=== PATIENT | female | born 1960 | race Caucasian/White ===

== ENCOUNTER → 2018-05-05 12:24 | Outpatient (CLI) | payer OTHER, SELFPAY ==
--- NOTE | 2018-05-05 | DI.MRI.S_ITS ---
PROCEDURE: MR LUMBAR SPINE WO CON INDICATIONS: LUMBAR SPINE PAIN TECHNIQUE: Noncontrast sagittal T1 spin echo and T2 fast echo, sagittal STIR, axial T1 and T2 fast spin echo through the lumbar spine. In cases with scoliosis, additional coronal T2 fast spin echo may be performed. COMPARISON: None. FINDINGS: Image quality: Excellent. Alignment and Curvature: Straightening of the normal lumbar lordosis Bone Marrow: Marrow is of normal overall signal. No acute vertebral body compression fractures. Spinal Cord: Conus medullaris terminates at the L1 level. Visualized cord demonstrates normal signal and size. Paraspinous Soft Tissues: No paravertebral masses. L1-L2: Posterior annular fissure and broad-based posterior disc bulge. Bilateral facet arthropathy and mild central canal narrowing. No foraminal stenosis. L2-L3: Bilateral facet arthropathy. No central canal narrowing. Mild partial effacement of the left and right lateral recess. No foraminal stenosis. L3-L4: Minimal broad-based posterior disc bulge and bilateral facet disease. No high-grade canal stenosis. Mild bilateral subarticular stenosis. No definite foraminal narrowing L4-L5: Broad-based posterior disc bulge with posterior annular fissure and left paracentral disc protrusion. Associated mild left-sided central canal narrowing. Partial effacement of the left lateral recess. The left L5 nerve root is not well seen in this location. Also, there is slightly posterior displaced appearance of the left S1 nerve root. Mild bilateral foraminal narrowing L5-S1: Normal appearance. IMPRESSION: Left paracentral L4-L5 disc protrusion, with possible impingement of the left L5 and S1 nerve roots. Please correlate with clinical exam findings. Elsewhere, no high-grade canal or foraminal stenosis. Dictated by: Kam Padilla M.D. on 05/05/2018 at 13:37 Approved by: Kam Padilla M.D. on 05/05/2018 at 14:02
== END ==
PROVIDERS: PCP Internal Medicine; Visit Provider Physical Medicine & Rehabilitation Pain Medicine
DX: M51.26 Other intervertebral disc displacement, lumbar region (principal)
CPT/HCPCS: 72148

== ENCOUNTER 2019-02-24 10:45 | Emergency (ER) | payer OTHER, SELFPAY ==
[2019-02-24 11:08] VITALS: BP 128/54; PULSE 65; RESP 20; TEMP 36.7; O2SAT 98
--- NOTE | 2019-02-24 12:06 | ED.BACK ---
HPI - Back Pain/Injury <Hue OrantesPRETTY - Last Filed: 02/24/19 21:37> General Chief Complaint: Back Pain/Injury Stated Complaint: lower back pain Time Seen by Provider: 02/24/19 11:22 Source: patient and family Mode of arrival: ambulatory Limitations: no limitations History of Present Illness HPI Narrative: 58-year-old female has a history of a lower herniated disc, and is currently taking Lamictal, presents emergency department today complaining of lower right back pain after bending over while taking care of the dog yesterday. She states her pain is spasm like and reports a 10/10 severity that is worse with standing up and standing for long periods of time. She states her pain is better while she is sitting or lying time. She denies any trauma, numbness, tingling, saddle paresthesias, loss of bowel or bladder control, dysuria, fevers, abdominal pain, nausea, vomiting, diarrhea, chest pain, shortness of breath, or headaches. She also denies limb weakness, but states it is harder to move around due to the pain. She states she has tried muscle relaxers in the past as well as various other pain medication and she says hydromorphone is the only 1 that works for her pain. She states that she usually has pain that radiates down her legs, however this muscle spasm pain is different and does not radiate down her legs. Patient stated she was doing physical therapy for her back pain however she decided to quit she no longer want to pay 30 dollars for her co-pay, she wanted to go back to see the spine surgeon and is planned getting a referral from her primary care provider, she has an appointment scheduled within the next few weeks. Complaint: back pain Onset (ago): minute(s) Duration: constant Similar Symptoms Previously: Yes Location: lumbar spine and right lower back Quality: spasming Radiation: none Severity scale (1-10): 10 Relieving factors: supine Exacerbating factors: sitting upright Context: turning/twisting Associated symptoms: denies other symptoms Related Data Home Medications Medication Instructions Recorded Confirmed multivitamin 1 tab PO DAILY #0 01/07/12 02/24/19 nystatin [Nystop] 1 applic TOPICAL DIRECTED 02/24/19 02/24/19 Previous Rx's Medication Instructions Recorded lamotrigine [Lamictal] 200 mg PO BID 90 Days #0 06/07/12 cyclobenzaprine 10 mg PO BEDTIME #7 tab 02/24/19 diclofenac sodium 2 gram TOP QID #100 gram 02/24/19 Allergies Allergy/AdvReac Type Severity Reaction Status Date / Time No Known Drug Allergies Allergy Verified 02/24/19 12:04 Review of Systems <PRETTY Clayton - Last Filed: 02/24/19 21:37> Review of Systems REVIEW OF SYSTEMS: GENERAL: Denies fever or chills. HENT: No head trauma. EYES: No double vision or vision loss. CARDIOVASCULAR: No chest pain or syncope. RESPIRATORY: No shortness of breath or cough. GASTROINTESTINAL: No nausea, vomiting, diarrhea, or constipation. GENITOURINARY: No flank pain or dysuria. MUSCULOSKELETAL: Complains of back pain, see HPI. INTEGUMENTARY: No rash, lesions, or pruritus. NEURO: No numbness, tingling. PSYCH: No behavior or mood changes. PFSH <PRETTY Clayton - Last Filed: 02/24/19 21:37> Medical History Back pain (Acute) Social History Smoking Status: Never smoker Social History Smoking Status: Never smoker Exam <PRETTY Clayton - Last Filed: 02/24/19 21:37> Initial Vital Signs Initial Vital Signs: Vital Signs Temperature 98.0 F 02/24/19 11:08 Pulse Rate 65 02/24/19 11:08 Respiratory Rate 20 02/24/19 11:08 Blood Pressure 128/54 L 02/24/19 11:08 Pulse Oximetry 98 02/24/19 11:08 PHYSICAL EXAMINATION: GENERAL: Well groomed, alert, and cooperative. Answers questions promptly and appropriately. Vital signs noted. HENT: Normocephalic, atraumatic. EYES: Symmetrical, sclera white, no periorbital swelling. CARDIOVASCULAR: S1 and S2 sounds normal. Regular rate and rhythm, no murmurs, clicks, or bruits. No pedal edema. RESPIRATORY: Normal respiratory rate, trachea midline, airway patent. No stridor, nasal flaring or accessory muscle use. Lungs are clear in all carvajal. MUSCULOSKELETAL: Patient has slowed gait due to back pain. Equal tone and mass bilaterally. No spinal or hip tenderness or deformities. Patient able to sit up in bed with slight pain. Positive straight leg test on the right and left side. No swelling or ecchymosis noted. 5/5 strength to upper and lower extremities equal bilaterally. EXTREMITIES: CMS intact. No pedal edema. SKIN: Warm, dry, soft, appropriate color for ethnicity. No lesions, rashes, or wounds. NEURO: Alert and Oriented X 3. No sensory deficits. PSYCH: Appropriate affect and mood. <Eun Persaud DO - Last Filed: 02/25/19 08:41> Initial Vital Signs Initial Vital Signs: Vital Signs Temperature 98.0 F 02/24/19 11:08 Pulse Rate 65 02/24/19 11:08 Respiratory Rate 20 02/24/19 11:08 Blood Pressure 128/54 L 02/24/19 11:08 Pulse Oximetry 98 02/24/19 11:08 Course <PRETTY Clayton - Last Filed: 02/24/19 21:37> Course Narrative: Discussed with patient that hydromorphone is dangerous to prescribed for back pain due to side effects and risk of addiction. I recommended the patient continue to follow up with the surgeon that she was previously referred to. Orders Ordered: Discontinued Medications Cyclobenzaprine HCl (Flexeril) 10 mg PO NOW ONE Stop: 02/24/19 13:01 Last Admin: 02/24/19 13:02 Dose: 10 mg Ketorolac Tromethamine (Toradol) 30 mg IM NOW ONE Stop: 02/24/19 12:06 Last Admin: 02/24/19 12:16 Dose: 30 mg Vital Signs - 8 hr 02/24/19 13:30 Pulse Rate 64 Respiratory Rate 16 Blood Pressure 116/33 L Pulse Oximetry 99 <Eun Persaud DO - Last Filed: 02/25/19 08:41> Orders Ordered: Discontinued Medications Cyclobenzaprine HCl (Flexeril) 10 mg PO NOW ONE Stop: 02/24/19 13:01 Last Admin: 02/24/19 13:02 Dose: 10 mg Ketorolac Tromethamine (Toradol) 30 mg IM NOW ONE Stop: 02/24/19 12:06 Last Admin: 02/24/19 12:16 Dose: 30 mg Vital Signs - 8 hr 02/24/19 13:30 Pulse Rate 64 Respiratory Rate 16 Blood Pressure 116/33 L Pulse Oximetry 99 [facility] - Back Pain/Injury <PRETTY Clayton - Last Filed: 02/24/19 21:37> Medical Records Attestation: I reviewed the patient's medical records. Lab Data Attestation: I reviewed the patient's lab results. [facility] Narrative Medical decision making narrative: Differential includes lumbar strain versus sciatica pain (possibly from herniated disc) however, patient may be due to combination of both of these factors due to the fact that her pain was exacerbated with bending (strain), she has a history of a herniated (sciatica), and her straight like raise was positive. Had a long discussion with patient that her pain is best managed by physical therapy. She was given cyclobenzaprine per request to decrease muscle spasms that were felt during exam. Discharge Plan Departure Patient Disposition: Home Clinical Impression: Back pain Qualifiers: Back pain location: low back pain Chronicity: acute Back pain laterality: right Sciatica presence: with sciatica Sciatica laterality: sciatica laterality unspecified Qualified Code(s): M54.40 - Lumbago with sciatica, unspecified side Discharge Date/Time: 02/24/19 13:30 Interventions: ED Discharge Assessment Last Done: 02/24/19 13:30 Instructions: DI for Sciatica, DI for Back Spasm Activity Restrictions/Additional Instructions: Thank you for entrusting me with your care today. As discussed, it appears that her symptoms are caused by a back spasm which may be worsened by her history of a herniated disc. I recommend that you follow up with the surgeon that you have been referred to in the next week or so. I prescribed you a muscle relaxer to help decrease the pain as well as a cream to rub on the painful areas of your back. As discussed, hydromorphone is dangerous to prescribe for back pain and is not recommended. Please return to the emergency department if you develop chest pain, shortness of breath, loss of bowel or bladder control, uncontrollable vomiting, or high fevers. Prescriptions: New cyclobenzaprine 10 mg tablet 10 mg PO BEDTIME Qty: 7 RF: 0 diclofenac sodium 1 % gel 2 gram TOP QID Qty: 100 RF: 0 No Action multivitamin Tablet 1 tab PO DAILY Qty: 0 RF: 0 lamotrigine [Lamictal] 200 MG tablet 200 mg PO BID 90 Days Qty: 0 RF: 3 nystatin [Nystop] 100,000 unit/gram powder 1 applic topical DIRECTED RF: 0 Referrals: Blanca Blanc MD [Primary Care Provider] - <Eun Persaud DO - Last Filed: 02/25/19 08:41> Cosign ED Attending Cosignature Attestation: I was immediately available in the department for consultation. Documentation has been reviewed. I agree with assessment and plan.
[2019-02-24] MEDS: KETOROLAC 60 MG/2 ML VIAL 30 MG IM (12:16)
[2019-02-24 12:34] VITALS: BP 117/59; PULSE 60; RESP 19; O2SAT 97
[2019-02-24] MEDS: CYCLOBENZAPRINE 10 MG TABLET PO (13:02)
[2019-02-24 13:30] VITALS: BP 116/33; PULSE 64; RESP 16; O2SAT 99
== END 2019-02-24 13:30 | disposition home or self-care (01) ==
PROVIDERS: Emergency Provider Nurse Practitioner; PCP Internal Medicine
DX: M54.40 Lumbago with sciatica, unspecified side (principal); X50.9XXA Other and unspecified overexertion or strenuous movements or postures, initial encounter
CPT/HCPCS: 96372; 99282; 99283; J1885

== ENCOUNTER → 2019-03-02 17:59 | Outpatient (CLI) | payer OTHER, SELFPAY ==
--- NOTE | 2019-03-02 | DI.MRI.S_ITS ---
PROCEDURE: MR LUMBAR SPINE WO CON INDICATIONS: RADICULOPATHY, LUMBAR REGION TECHNIQUE: Noncontrast sagittal T1 spin echo and T2 fast echo, sagittal STIR, axial T1 and T2 fast spin echo through the lumbar spine. In cases with scoliosis, additional coronal T2 fast spin echo may be performed. COMPARISON: [facility] [place], CR, XR LUMBAR SPINE WITH OLBIQUES PLUS FLEXION EXTENSION, 04/18/2018, 9:27. [facility], , MR LUMBAR SPINE WO CON, 05/05/2018, 12:36. FINDINGS: Image quality: Excellent. Alignment and Curvature: There appear to be 6 lumbar-type vertebral bodies by plain film examination. However, the same numbering system which was employed on the prior lumbar spine MRI report will be used on the current report, for the purposes of consistency. Recommend correlation with plain films prior to any lumbar spinal intervention. There is loss of normal lumbar lordosis. Bone Marrow: Marrow is of normal overall signal. No acute vertebral body compression fractures. Spinal Cord: Conus medullaris terminates at the mid L1 level. Visualized cord demonstrates normal signal and size. Paraspinous Soft Tissues: No paravertebral masses. L1-L2: Moderate disc desiccation. Mild diffuse disc bulge with superimposed left paracentral protrusion. Mild bilateral facet and ligamentum flavum hypertrophy. Mild canal stenosis. Mild bilateral foraminal stenosis. No change. L2-L3: Mild disc desiccation. Mild diffuse disc bulge. Mild facet and ligamentum flavum hypertrophy. Mild canal stenosis. No foraminal stenosis. No change. L3-L4: Mild disc height loss and desiccation. Mild diffuse disc bulge. Mild bilateral facet hypertrophy. Mild canal stenosis. Mild bilateral foraminal stenosis. No change. L4-L5: Moderate disc height loss and desiccation. Moderate diffuse disc bulge with superimposed left paracentral protrusion, which has increased slightly in size. Mild bilateral facet hypertrophy. Mild canal stenosis. Impingement upon the left L5 nerve root within the lateral recess. Mild left and moderate right subarticular foraminal stenoses are unchanged. L5-S1: Mild bilateral facet hypertrophy. No significant canal, nor foraminal stenosis. No change. IMPRESSION: 1. The numbering system for the current report is the same numbering system which was used on the 05.05.18 lumbar spine MRI report, for the purposes of consistency. However, plain films demonstrate 6 lumbar type vertebral bodies. Recommend correlation with plain films prior to any lumbar spinal intervention. 2. Increased L4-L5 disc protrusion, causing left L5 nerve root impingement. Recommend correlation with clinical symptoms to ascertain relevance of this finding. Dictated by: Briana Mcgowan M.D. on 03/03/2019 at 10:51 Approved by: Briana Mcgowan M.D. on 03/03/2019 at 10:59
== END ==
PROVIDERS: PCP Internal Medicine; Visit Provider Family Medicine
DX: M51.16 Intervertebral disc disorders with radiculopathy, lumbar region (principal)
CPT/HCPCS: 72148

== ENCOUNTER → 2019-08-07 07:33 | Outpatient (CLI) | payer OTHER, SELFPAY ==
--- NOTE | 2019-08-07 | DI.MG.S_ITS ---
BILATERAL DIGITAL SCREENING MAMMOGRAM 3D/2D WITH CAD: 08/07/2019 CLINICAL: Routine screening. Family history of breast cancer. Comparison is made to exams dated: 07/13/2018 mammogram, 07/05/2017 mammogram, and 06/22/2016 mammogram - [facility]. There are scattered fibroglandular elements in both breasts. Current study was also evaluated with a Computer Aided Detection (CAD) system. No significant masses, calcifications, or other findings are seen in either breast. There has been no significant interval change. IMPRESSION: NEGATIVE There is no mammographic evidence of malignancy. A 1 year screening mammogram is recommended. This exam was interpreted at Station ID: [id number]. NOTE: For mammograms, a report in lay terms will be sent to the patient. Approximately 15% of breast malignancies will not be visualized mammographically. In the management of a palpable breast mass, a negative mammogram must not discourage biopsy of a clinically suspicious lesion. Electronically Signed By: Veronika samuel/david:08/07/2019 10:55:23 letter sent: Normal Exam ACR BI-RADS Category 1: Negative [id number]
== END ==
PROVIDERS: PCP Internal Medicine; Visit Provider Family Medicine
DX: Z12.31 Encounter for screening mammogram for malignant neoplasm of breast (principal); Z80.3 Family history of malignant neoplasm of breast
CPT/HCPCS: 77063; 77067

== ENCOUNTER → 2020-08-17 09:55 | Outpatient (CLI) | payer OTHER, SELFPAY ==
--- NOTE | 2020-08-17 | DI.MG.S_ITS ---
BILATERAL DIGITAL SCREENING MAMMOGRAM 3D/2D WITH CAD: 08/17/2020 CLINICAL: Routine screening. Family history of breast cancer. Comparison is made to exams dated: 08/07/2019 mammogram - [facility], 07/13/2018 mammogram, and 07/05/2017 mammogram - [facility]. There are scattered fibroglandular elements in both breasts. Current study was also evaluated with a Computer Aided Detection (CAD) system. No significant masses, calcifications, or other findings are seen in either breast. There has been no significant interval change. IMPRESSION: NEGATIVE There is no mammographic evidence of malignancy. A 1 year screening mammogram is recommended. This exam was interpreted at Station ID: [id number]. NOTE: For mammograms, a report in lay terms will be sent to the patient. Approximately 15% of breast malignancies will not be visualized mammographically. In the management of a palpable breast mass, a negative mammogram must not discourage biopsy of a clinically suspicious lesion. Electronically Signed By: Richard andersen/david:08/19/2020 09:00:39 letter sent: Normal Exam ACR BI-RADS Category 1: Negative [id number]
== END ==
PROVIDERS: PCP Family Medicine; Referring Provider Family Medicine; Visit Provider Family Medicine
DX: Z12.31 Encounter for screening mammogram for malignant neoplasm of breast (principal); Z80.3 Family history of malignant neoplasm of breast
CPT/HCPCS: 77063; 77067

== ENCOUNTER → 2021-08-20 14:56 | Outpatient (CLI) | payer OTHER, SELFPAY ==
--- NOTE | 2021-08-20 14:59 | DI.MG.S_ITS ---
BILATERAL DIGITAL SCREENING MAMMOGRAM 3D/2D WITH CAD: 08/20/2021 CLINICAL: Routine screening. Family history of breast cancer. Comparison is made to exams dated: 08/17/2020 mammogram, 08/07/2019 mammogram - [facility], 07/13/2018 mammogram, 07/05/2017 mammogram, and 06/22/2016 mammogram - [facility]. There are scattered fibroglandular elements in both breasts. Current study was also evaluated with a Computer Aided Detection (CAD) system. No significant masses, calcifications, or other findings are seen in either breast. There has been no significant interval change. IMPRESSION: NEGATIVE There is no mammographic evidence of malignancy. A 1 year screening mammogram is recommended. This exam was interpreted at Station ID: [id number]. NOTE: For mammograms, a report in lay terms will be sent to the patient. Approximately 15% of breast malignancies will not be visualized mammographically. In the management of a palpable breast mass, a negative mammogram must not discourage biopsy of a clinically suspicious lesion. Electronically Signed By: Kingsley Chan acr/penrad:08/20/2021 15:49:15 letter sent: Normal Exam ACR BI-RADS Category 1: Negative [id number]
== END ==
PROVIDERS: PCP Family Medicine; Referring Provider Family Medicine; Visit Provider Family Medicine
DX: Z12.31 Encounter for screening mammogram for malignant neoplasm of breast (principal)
CPT/HCPCS: 77063; 77067